=== PATIENT | male | born 1965 | race Caucasian/White ===

== ENCOUNTER 2018-05-20 12:03 | Emergency (ER) | payer OTHER ==
[2018-05-20] MEDS ORDERED: CHLORDIAZEPOXIDE 25MG PREPK#6 BTL TAKEHOME ONE (13:28)
--- NOTE | 2018-05-20 13:28 | EDPHY ---
H & P Stated Complaint: etoh sent from [facility] for med clear Time Seen by Provider: 05/20/18 12:52 HPI/ROS: CHIEF COMPLAINT: Alcohol intoxication HISTORY OF PRESENT ILLNESS: 52-year-old male with alcoholism presents with alcohol intoxication. He was just at the [facility] and they sent him here for medical clearance for detox. He drank a large amount of vodka this morning and when he arrived to the [facility] he had an unsteady gait. He has not been ill recently. No fever, cough, vomiting. He has been on an alcohol binge for 1 year. Previously sober for 13 years. REVIEW OF SYSTEMS: complete 10 point ROS reviewed and is negative except for the noted elements in the HPI - Personal History Current Tetanus Diphtheria and Acellular Pertussis (TDAP): Yes - Medical/Surgical History Hx Asthma: No Hx Chronic Respiratory Disease: No Hx Diabetes: No Hx Cardiac Disease: No Hx Renal Disease: No Hx Cirrhosis: No Hx Alcoholism: Yes Hx HIV/AIDS: No Hx Splenectomy or Spleen Trauma: No Other PMH: etoh - Social History Smoking Status: Never smoked - Physical Exam Exam: General Appearance: Alert, slurred speech, cooperative Eyes: Pupils dilated, no nystagmus ENT, Mouth: Mucous membranes moist, no trauma Neck: normal inspection, no tenderness Respiratory: Lungs are clear to auscultation Cardiovascular: Regular rate and rhythm Gastrointestinal: Abdomen is soft and nontender, bowel sounds normal Neurological: Alert and cooperative, motor 5/5, steady gait Skin: Warm and dry, no visible wounds Extremities: normal inspection Psychiatric: Mood and affect normal Constitutional: Initial Vital Signs Temperature (C) 36.8 C 05/20/18 12:09 Heart Rate 87 05/20/18 12:09 Respiratory Rate 18 05/20/18 12:09 Blood Pressure 100/86 H 05/20/18 12:09 O2 Sat (%) 94 05/20/18 12:09 O2 Delivery Mode Room Air Allergies/Adverse Reactions: No Known Allergies Allergy (Unverified 05/20/18 12:08) Home Medications: Medication Instructions Recorded NK [No Known Home Meds] 05/20/18 Medical Decision Making ED Course/Re-evaluation: 30: Able to walk with a steady gait. Will discharge the patient to the [facility]. Departure - Departure Disposition: Home, Routine, Self-Care Clinical Impression: Alcoholic intoxication Qualifiers: Complication of substance-induced condition: uncomplicated Qualified Code(s): F10.920 - Alcohol use, unspecified with intoxication, uncomplicated Condition: Good Instructions: Alcohol Intoxication (ED), Abuse of Alcohol (ED) Additional Instructions: Go directly to the [facility]. Referrals: [facility] 24 Hours [Outside] - As per Instructions
[2018-05-20 13:49] VITALS: BP 112/84
== END 2018-05-20 13:55 | disposition home or self-care (01) ==
DX: F10.920 Alcohol use, unspecified with intoxication, uncomplicated (principal)